=== PATIENT | male | born 1955 ===

== ENCOUNTER 2024-04-10 05:39 | Day surgery (SDC) | payer OTHER ==
[~2024-04-10 05:39] MED LIST: ADULT LOW DOSE81 M1 PO; PRAVASTATIN SOD20 MG PO; PROTONIX40 MG PO; VITAMIN D310 MCG/1 M
[2024-04-10] MEDS ORDERED: BUPIVACAINE HCL 30 ML VIAL IJ ONE (08:15)
[2024-04-10] MEDS ORDERED: CEFAZOLIN SODIUM 1,000 MG VIAL IV ONE (08:15)
[2024-04-10] MEDS ORDERED: SUGAMMADEX SODIUM 200 MG/2 ML VIAL IV ONE (08:45)
[2024-04-10] MEDS ORDERED: MIRALAX17 GM PO (09:25)
[2024-04-10] MEDS ORDERED: TRAMADOL HCL50 MG PO (09:25)
[2024-04-10] MEDS ORDERED: TYLENOL ARTHRI650 MG PO (09:25)
== END 2024-04-10 11:15 | disposition home or self-care (01) ==
LOC: CIR.AMB 05:39
PROVIDERS: ATTEND Surgery
DX: K40.90 Unilateral inguinal hernia, without obstruction or gangrene, not specified as recurrent (principal); K42.0 Umbilical hernia with obstruction, without gangrene
CPT/HCPCS: 49592; 49650; C1781